=== PATIENT | female | born 1960 ===

== ENCOUNTER 2017-03-13 19:12 | Emergency (ER) | payer MEDICAID ==
[2017-03-13 19:27] VITALS: BP 138/86; PULSE 61; RESP 16; TEMP 98.2; O2SAT 99
--- NOTE | 2017-03-13 19:58 | ED PDOC ---
HPI: Headache Time Seen by Provider: 03/13/17 19:42 Chief Complaint (Nursing): Headache Chief Complaint (Provider): headache History Per: Patient History/Exam Limitations: no limitations Onset/Duration Of Symptoms: Days (x 1) Current Symptoms Are (Timing): Gone Now Additional Complaint(s): Ashwini Rob is a 56 year old female, with a previous medical history of gastritis, who presents to the ED with complaints of a frontal headache associated with right arm pain from the elbow to the shoulder and bilateral leg numbness from the knees to her feet ongoing since this morning. Patient denies any neck stiffness, weakness, visual changes or incontinence. Patient states headache and arm pain resolved secondary to taking Tylenol but leg numbness continues. PMD: none provided NIHSS Stroke Scale - Date/Time Evaluation Performed Date Performed: 03/13/17 Time Performed: 20:00 When Was NIHSS Performed: Baseline - How Severe is the Stroke Level of Consciousness: 0=Alert LOC to Questions: 0=Both comments correct Best Gaze: 0=Normal Visual: 0=No visual loss Facial: 0=Normal Motor Arm - Left: 0=No drift Motor Arm - Right: 0=No drift Motor Leg - Left: 0=No drift Motor Leg - Right: 0=No drift Limb Ataxia: 0=Absent Sensory: 0=Normal Dysarthia: 0=Normal articulation Extinction & Inattention (Neglect): 0=Normal, no object Past Medical History Reviewed: Historical Data, Nursing Documentation, Vital Signs Vital Signs: Last Vital Signs Temp 98.2 F 03/13/17 19:24 Pulse 61 03/13/17 19:24 Resp 16 03/13/17 19:24 BP 138/86 03/13/17 19:24 Pulse Ox 99 03/13/17 19:24 - Medical History PMH: Gastritis - Surgical History Surgical History: Cholecystectomy - Family History Family History: States: No Known Family Hx - Home Medications Home Medications: Ambulatory Orders Medication Instructions Recorded Ciprofloxacin HCl [Cipro] 250 mg PO BID #14 tab 12/11/15 Naproxen [Naprosyn] 500 mg PO BID PRN #20 tablet 12/11/15 Naproxen [Naprosyn] 500 mg PO BID PRN #15 tablet 03/13/17 - Allergies Allergies/Adverse Reactions: Allergies Allergy/AdvReac Type Severity Reaction Status Date / Time No Known Allergies Allergy Verified 05/31/17 19:24 Review of Systems ROS Statement: Except As Marked, All Systems Reviewed And Found Negative Eyes: Negative for: Vision Change Genitourinary Female: Negative for: Incontinence Musculoskeletal: Positive for: Arm Pain (right arm from elbow to shoulder). Negative for: Neck Pain (or stiffness ) Neurological: Positive for: Numbness (bilateral legs from knees to feet), Headache. Negative for: Weakness Physical Exam - Reviewed Nursing Documentation Reviewed: Yes Vital Signs Reviewed: Yes - Physical Exam Appears: Positive for: Well, Non-toxic, No Acute Distress Head Exam: Positive for: ATRAUMATIC, NORMAL INSPECTION, NORMOCEPHALIC Skin: Positive for: Normal Color, Warm, Dry Eye Exam: Positive for: Normal appearance, EOMI, PERRL. Negative for: Nystagmus Neck: Positive for: Normal, Painless ROM, Supple Cardiovascular/Chest: Positive for: Regular Rate, Rhythm Respiratory: Positive for: CNT, Normal Breath Sounds Pulses-Dorsalis Pedis (L): 2+ Pulses-Dorsalis Pedis (R): 2+ Extremity: Positive for: Normal ROM, Capillary Refill (< 2 seconds ), Other ( strength 5/5 in all extremities and sensations intact). Negative for: Tenderness, Pedal Edema, Calf Tenderness, Deformity, Swelling Neurologic/Psych: Positive for: Alert, Oriented. Negative for: Motor/Sensory Deficits - Laboratory Results Result Diagrams: 03/13/17 20:09 03/13/17 20:09 - ECG O2 Sat by Pulse Oximetry: 99 (RA) Pulse Ox Interpretation: Normal - CT Scan/US CT head Other Rad Studies (CT/US): Radiology Report Reviewed (No acute intracranial abnormality.) - Physician Consult Information Time Consulting Physican Contacted: 22:27 Physician Contacted: Christopher Canales Outcome Of Conversation: Recommends Rx for outpatient MRI brain with and without contrast and follow-up in office. Medical Decision Making Medical Decision Making: Initial Impression: Headache Initial Plan: * CT head w/o contrasti * labs * partial thromboplastin time * prothrombin time * urine * urine dipstick * urinalysis * reevaluation Scribe Attestation: Documented by Becky Chacon, acting as a scribe for Becky Eubanks MD. Provider Scribe Attestation: All medical record entries made by the Scribe were at my direction and personally dictated by me. I have reviewed the chart and agree that the record accurately reflects my personal performance of the history, physical exam, medical decision making, and the department course for this patient. I have also personally directed, reviewed, and agree with the discharge instructions and disposition. Disposition - Clinical Impression Clinical Impression: Acute headache, Paresthesia of bilateral legs - Patient ED Disposition Is Patient to be Admitted: No - Disposition Referrals: Christopher Canales MD [Staff Provider] - Disposition: Routine/Home Disposition Time: 22:28 Condition: STABLE Additional Instructions: GET OUTPATIENT MRI BRAIN WITH PRESCRIPTION GIVEN. Prescriptions: Naproxen [Naprosyn] 500 mg PO BID PRN #15 tablet PRN Reason: Pain, Moderate (4-7) Instructions: Acute Headache (ED), Paresthesia (ED) Print Language: WELSH
[2017-03-13 20:35] LABS: PARTIAL THROMBOPLASTIN TIME 27.5 SECONDS (23.3-32.5)
[2017-03-13 20:47] LABS: URINE BILIRUBIN NEGATIVE (NEGATIVE); URINE BLOOD SMALL (NEGATIVE); URINE COLOR STRAW (YELLOW); URINE GLUCOSE (UA) NEG (Normal); URINE KETONE NEGATIVE (NEGATIVE); URINE LEUKOCYTE ESTERASE NEG Leu/uL (Negative); URINE PROTEIN NEGATIVE (NEGATIVE); URINE UROBILINOGEN 0.2-1.0 mg/dL (0.2-1.0); WBC URINE 1 /hpf (0-5)
[2017-03-13 20:49] LABS: BASO % 0.4 % (0.0-2.0); EOS # 0.2 K/uL (0.0-0.7); EOS % 2.3 % (0.0-4.0); HEMATOCRIT 41.7 % (34.0-47.0); LYMPH # 2.8 K/uL (1.0-4.3); LYMPH % 32.7 % (20.0-40.0); MEAN CELL VOLUME 88.2 fl (81.0-99.0); MEAN CORPUSCULAR HGB CONC 32.8 g/dL (33.0-37.0); MEAN PLATELET VOLUME 8.2 fl (7.2-11.7); MONO # 0.6 K/uL (0.0-0.8); MONO % 6.9 % (0.0-10.0); NEUT % 57.7 % (50.0-75.0); RED CELL DISTRIBUTION WIDTH 14.8 % (11.5-14.5); WHITE BLOOD COUNT 8.7 K/uL (4.8-10.8)
[2017-03-13 21:05] LABS: ALB/GLOB RATIO 1.3 (1.0-2.1); ALKALINE PHOSPHATASE 79 U/L (38-126); ALT/SGPT 41 U/L (9-52); AST/SGOT 32 U/L (14-36); BILIRUBIN,TOTAL 0.5 mg/dl (0.2-1.3); BLOOD UREA NITROGEN 17 mg/dl (7-17); CALCIUM 9.6 mg/dL (8.4-10.2); CARBON DIOXIDE 28 mmol/L (22-30); CHLORIDE 103 mmol/L (98-107); GFR AFRICAN-AMERICAN > 60; GLUCOSE,RANDOM 103 mg/dL (65-105); SODIUM 143 mmol/l (132-148); TOTAL PROTEIN 8.2 G/DL (6.3-8.2)
--- NOTE | 2017-03-13 21:46 | CT ---
EXAM: CT Head Without Intravenous Contrast CLINICAL HISTORY: 56 years old, female; Pain; Headache; Other: Frontal; Additional info: ATKINSON TECHNIQUE: Axial computed tomography images of the head/brain without intravenous contrast. This CT exam was performed using one or more of the following dose reduction techniques: automated exposure control, adjustment of the mA and/or kV according to patient size, and/or use of iterative reconstruction technique. Coronal and sagittal reformatted images were created and reviewed. EXAM DATE/TIME: 03/13/2017 7:49 PM COMPARISON: There are no prior studies for comparison. FINDINGS: Brain: Ventricles are normal in size and configuration. There is no midline shift. There are no intra-axial or extra-axial mass lesions or areas of hemorrhage. There are no abnormal fluid collections. Meade-white differentiation is maintained. Ventricles: See above. Bones: Cranial vault is intact. Soft tissues: unremarkable Sinuses: There is no acute sinusitis. Ears and mastoids: Middle ears and mastoids are unremarkable Orbits: Orbital contents are unremarkable. IMPRESSION: No acute intracranial abnormality
== END 2017-03-13 22:58 | disposition home or self-care (01) ==
LOC: H.ER 19:12
DX: R51 Headache (principal); R20.9 Unspecified disturbances of skin sensation

== ENCOUNTER 2017-04-25 09:00 | Day surgery (SDC) | payer MEDICAID ==
[2017-04-25] MEDS ORDERED: Lactated Ringer's 500 ML IV ONE (09:28)
[2017-04-25] MEDS ORDERED: Propofol 10 mg/ml Inj (20 ML) ONE (09:50)
[2017-04-25 10:17] VITALS: TEMP 97.5
[2017-04-25 10:30] VITALS: BP 102/59; PULSE 55; RESP 15; O2SAT 100
== END 2017-04-25 10:31 | disposition home or self-care (01) ==
LOC: H.ENDO 09:00
PROVIDERS: ATTEND Internal Medicine Gastroenterology
DX: Z12.11 Encounter for screening for malignant neoplasm of colon (principal); K64.8 Other hemorrhoids

== ENCOUNTER 2018-02-27 13:59 | Emergency (ER) | payer MEDICAID ==
[2018-02-27 14:24] VITALS: BP 151/87; PULSE 64; RESP 18; TEMP 98; O2SAT 99
--- NOTE | 2018-02-27 15:45 | ED PDOC ---
HPI: General Adult Time Seen by Provider: 02/27/18 15:15 Chief Complaint (Nursing): Abnormal Skin Integrity Chief Complaint (Provider): Abnormal Skin Integrity History Per: Patient History/Exam Limitations: no limitations Onset/Duration Of Symptoms: Days (2) Current Symptoms Are (Timing): Still Present Additional Complaint(s): 57 year old female presents to the emergency department with a complaint of vaginal pain and swelling x2 days. Reports feeling a "ball" in her vaginal that has been worsening since onset. States that for about 2 months she has had a pain to the right hip radiating to the grown but is unsure if this is related. Patient also reports diarrhea last week that had resolved since. Denies vaginal bleeding, vaginal discharge, fever, chills, urinary symptoms, nausea, vomiting, and constipation. Last ASSISTANT ADMINISTRATOR appointment was 1 year ago: normal exam. PMD: Dr. Ashley CHURCH Past Medical History Reviewed: Historical Data, Nursing Documentation, Vital Signs Vital Signs: Last Vital Signs Temp 98.0 F 02/27/18 14:21 Pulse 64 02/27/18 14:21 Resp 18 02/27/18 14:21 BP 151/87 H 02/27/18 14:21 Pulse Ox 99 02/27/18 16:43 - Medical History PMH: Gastritis - Surgical History Surgical History: Cholecystectomy Other surgeries: Intestinal correction surgery as an - Family History Family History: States: No Known Family Hx - Social History Current smoker - smoking cessation education provided: No Alcohol: None Drugs: Denies - Home Medications Home Medications: Ambulatory Orders Medication Instructions Recorded Cephalexin [cephalexin] 500 mg PO QID #20 cap 02/27/18 Ibuprofen [Motrin Tab] 600 mg PO Q8 PRN #30 tab 02/27/18 - Allergies Allergies/Adverse Reactions: Allergies Allergy/AdvReac Type Severity Reaction Status Date / Time No Known Allergies Allergy Verified 04/25/17 09:24 Review of Systems ROS Statement: Except As Marked, All Systems Reviewed And Found Negative (As per HPI, otherwise negative) Constitutional: Negative for: Fever, Chills Gastrointestinal: Negative for: Nausea, Vomiting, Constipation Genitourinary Female: Positive for: Other (Vaginal pain and swelling). Negative for: Dysuria, Frequency, Incontinence, Hematuria, Vaginal Discharge, Vaginal Bleeding Musculoskeletal: Positive for: Other (Right hip radiating to the groin ) Physical Exam - Reviewed Nursing Documentation Reviewed: Yes Vital Signs Reviewed: Yes - Physical Exam Appears: Positive for: Well, Non-toxic, No Acute Distress Head Exam: Positive for: ATRAUMATIC, NORMAL INSPECTION, NORMOCEPHALIC Skin: Positive for: Warm, Dry Gastrointestinal/Abdominal: Positive for: Normal Exam, Soft. Negative for: Tenderness, Mass, Distended, Guarding, Rebound Pelvic Exam: Positive for: External Exam Normal (Automatic Beam Warper Tender: Eli RN. Normal external genitalia. ), Other (Palpable cyst at the right posterior vaginal opening consistent with bartholin cyst. Mild tenderness to palpation and fluctuant. ). Negative for: Active Bleeding, Discharge (No abnormal discharge) Lymphatic: Positive for: Normal Exam. Negative for: Other (No inguinal adenopathy) Neurologic/Psych: Positive for: Alert, Oriented (x3) - ECG O2 Sat by Pulse Oximetry: 99 (RA) Pulse Ox Interpretation: Normal Medical Decision Making Medical Decision Making: Time: 152 Initial impression: Bartholin Cyst Initial plan: Urine DIP Reevaluation Time: 154 --Discussed case with Dr. Kenny Wheat MD who will come and evaluate the patient in the ER. Time: 155 --RUBBER VULCANIZING MACHINE OPERATOR consult States: Consulting provider: Dr. Kenny Wheat MD [id number] Wheat who performed I&D of Bartholin's cyst. Pt to be given antibiotics and follow up next week [facility]. Scribe Attestation: Documented by Tonya Daliy, acting as a scribe for Ginny Angela MD Provider Scribe Attestation: All medical record entries made by the Scribe were at my direction and personally dictated by me. I have reviewed the chart and agree that the record accurately reflects my personal performance of the history, physical exam, medical decision making, and the department course for this patient. I have also personally directed, reviewed, and agree with the discharge instructions and disposition. Disposition - Clinical Impression Clinical Impression: Bartholin cyst Counseled Patient/Family Regarding: Studies Performed, Diagnosis, Need For Followup, Rx Given - Disposition Referrals: [facility] [Outside] ([facility]) Disposition: Routine/Home Disposition Time: 16:30 Condition: IMPROVED Prescriptions: Cephalexin [cephalexin] 500 mg PO QID #20 cap Ibuprofen [Motrin Tab] 600 mg PO Q8 PRN #30 tab PRN Reason: Pain, Moderate (4-7) Instructions: Bartholin's Gland Cyst Forms: [facility] ED School/Work Excuse Print Language: BULGARIAN
[2018-02-27] MEDS ORDERED: Lidocaine 1% Inj (20ml) ONE (16:00)
[2018-02-27] MEDS ORDERED: Silver Nitrate Topical - Stick ONE ×2 (16:23→16:24)
--- NOTE | 2018-02-27 16:46 | CP.PCM.CON ---
History of Present Illness - History of Present Illness History of Present Illness: Patient reports a history of swelling in the vagina that has been increasing in pain. Patient denies any fevers or chills. Patient denies any dysuria. Patient denies any abnormal bleeding or abnormal discharge. Patient denies any abdominal pain. On exam, patient has a right Bartholin gland abscess. Approximately 2-3 cm in size. I discussed with patient options including expectant management, antibiotics, and incision drainage. After discussion of options, patient opting for I/D. Discussed the risks, benefits, alternatives of procedure and patient consented to procedure. Past Patient History - Past Medical History & Family History Past Medical History?: No - Past Social History Alcohol: None Drugs: Denies - GASTROINTESTINAL Hx Gastritis: Yes - PSYCHIATRIC Hx Substance Use: No - SURGICAL HISTORY Hx Cholecystectomy: Yes - ANESTHESIA Hx Malignant Hyperthermia: No Meds Allergies/Adverse Reactions: Allergies Allergy/AdvReac Type Severity Reaction Status Date / Time No Known Allergies Allergy Verified 04/25/17 09:24 Physical Exam - Constitutional Appears: Well, No Acute Distress - Head Exam Head Exam: ATRAUMATIC - Eye Exam Eye Exam: EOMI, Normal appearance - Respiratory Exam Respiratory Exam: NORMAL BREATHING PATTERN - GI/Abdominal Exam GI & Abdominal Exam: Soft. absent: Distended, Tenderness - Exam Additional comments: Approximately 3 cm Bartholin gland cyst on right. This area sterile prep with Betadine solution. Area infiltrated superficially with 1% lidocaine solution. An approximately 0.5 cm incision placed with scalpel. Purulent fluid drained from the cyst. After drainage, slight found to be hemostatic. Patient tolerated procedure well. Results - Vital Signs Recent Vital Signs: Last Vital Signs Temp 98.0 F 02/27/18 14:21 Pulse 64 02/27/18 14:21 Resp 18 02/27/18 14:21 BP 151/87 H 02/27/18 14:21 Pulse Ox 99 02/27/18 16:43 Assessment & Plan - Assessment and Plan (Free Text) Assessment: Right Bartholin's gland abscess Plan: Procedure performed, as above. Keflex 500 mg 3 times daily for 5 days Follow-up in clinic within the week to examine discussed plan with patient and all patient questions answered. Weed Inspector present throughout history and physical and procedure. - Date & Time Date: 02/27/18 Time: 16:50
== END 2018-02-27 17:00 | disposition home or self-care (01) ==
LOC: H.ER 13:59
DX: N75.1 Abscess of Bartholin's gland (principal)

== ENCOUNTER 2018-08-03 20:20 | Emergency (ER) | payer MEDICAID ==
[2018-08-03 20:45] VITALS: BP 158/85; PULSE 72; RESP 18; TEMP 98.8; O2SAT 99
--- NOTE | 2018-08-03 21:45 | ED PDOC ---
HPI: Female Pain Time Seen by Provider: 08/03/18 21:01 Chief Complaint (Nursing): Female Genitourinary Chief Complaint (Provider): Female Genitourinary History Per: Patient History/Exam Limitations: no limitations Onset/Duration Of Symptoms: Days (x1) Current Symptoms Are (Timing): Still Present Additional Complaint(s): 57 year old female with a history of Bartholins abscess presents to the ED with right sided vaginal swelling onset 1 day. Patient reports pain radiated to buttocks. She had previous similar pain, at which point she was diagnosed with Bartholins abscess. Patient denies vaginal discharge, vaginal bleeding, fever but she does have chills. PMD: none provided Past Medical History Reviewed: Historical Data, Nursing Documentation, Vital Signs Vital Signs: Last Vital Signs Temp 98.8 F 08/03/18 20:42 Pulse 72 08/03/18 20:42 Resp 18 08/03/18 20:42 BP 158/85 H 08/03/18 20:42 Pulse Ox 99 08/03/18 20:42 - Medical History PMH: Gastritis - Surgical History Surgical History: Cholecystectomy - Family History Family History: States: Unknown Family Hx - Social History Current smoker - smoking cessation education provided: No Ex-Smoker (has not smoked in the last 12 months): No Alcohol: None Drugs: Denies - Home Medications Home Medications: Ambulatory Orders Medication Instructions Recorded Cephalexin [cephalexin] 500 mg PO QID #20 cap 02/27/18 Ibuprofen [Motrin Tab] 600 mg PO Q8 PRN #30 tab 02/27/18 Cephalexin [Keflex] 500 mg PO Q6 #28 capsule 08/03/18 Ibuprofen [Motrin Tab] 600 mg PO Q6 PRN #16 tab 08/03/18 - Allergies Allergies/Adverse Reactions: Allergies Allergy/AdvReac Type Severity Reaction Status Date / Time No Known Allergies Allergy Verified 04/25/17 09:24 Review of Systems ROS Statement: Except As Marked, All Systems Reviewed And Found Negative Genitourinary Female: Positive for: Other (right sided vaginal swelling) Physical Exam - Reviewed Nursing Documentation Reviewed: Yes Vital Signs Reviewed: Yes - Physical Exam Appears: Positive for: Non-toxic, No Acute Distress Head Exam: Positive for: ATRAUMATIC Skin: Positive for: Normal Color, Warm, Dry Eye Exam: Positive for: Normal appearance, EOMI, PERRL Cardiovascular/Chest: Positive for: Regular Rate, Rhythm. Negative for: Murmur Respiratory: Positive for: Normal Breath Sounds. Negative for: Respiratory Distress Gastrointestinal/Abdominal: Positive for: Normal Exam, Soft. Negative for: Tenderness Pelvic Exam: Positive for: External Exam Normal, Other (Diazo Technician: Edgar PYLE. No speculum, 3 cm right sided Bartholins cyst tenderness, erythema, no active drainage ) Back: Positive for: Normal Inspection Extremity: Positive for: Normal ROM (upper and lower). 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 Morrison --Ibuprofen Time: 2144 --Dr. Morrison came and evaluated patient and feels that patient does not need I&D or word catheter placement. Recommended patient receive a course of Keflex. Patient to follow up with Chief Librarian Extension Department clinic or return if she experiences any worsening symptom. Scribe Attestation: Documented by Mami Loyd, acting as a scribe for Dilip Villela MD Provider Scribe Attestation: All medical record entries made by the Scribe were at my direction and personally dictated by me. I have reviewed the chart and agree that the record accurately reflects my personal performance of the history, physical exam, medical decision making, and the department course for this patient. I have also personally directed, reviewed, and agree with the discharge instructions and disposition. Disposition - Clinical Impression Clinical Impression: Bartholin's gland abscess - Disposition Disposition Time: 21:45 Condition: STABLE Prescriptions: Cephalexin [Keflex] 500 mg PO Q6 #28 capsule Ibuprofen [Motrin Tab] 600 mg PO Q6 PRN #16 tab PRN Reason: pelvic pain Instructions: Bartholin's Gland Cyst, How to Do a Sitz Bath Forms: [facility] (Kyrgyz) Print Language: TELUGU
== END 2018-08-03 22:40 | disposition home or self-care (01) ==
LOC: H.ER 20:20
DX: N75.1 Abscess of Bartholin's gland (principal)

== ENCOUNTER 2018-08-04 18:14 | Emergency (ER) | payer MEDICAID ==
[2018-08-04 18:40] VITALS: BP 160/82; PULSE 72; RESP 16; TEMP 98.9; O2SAT 99
--- NOTE | 2018-08-04 21:22 | ED PDOC ---
HPI: Female Pain Time Seen by Provider: 08/04/18 21:00 Chief Complaint (Nursing): Female Genitourinary Chief Complaint (Provider): vaginal swelling History Per: Patient (57 y/o female here with right side vaginal swelling x few days. Seen by Dr. Morrison yesterday and d/c home. Patient notes increased pain/swelling.) Past Medical History Reviewed: Historical Data, Nursing Documentation, Vital Signs Vital Signs: Last Vital Signs Temp 98.9 F 08/04/18 18:40 Pulse 72 08/04/18 18:40 Resp 16 08/04/18 18:40 BP 160/82 H 08/04/18 18:40 Pulse Ox 99 08/04/18 18:40 - Medical History PMH: Gastritis - Surgical History Surgical History: Cholecystectomy - Family History Family History: States: Unknown Family Hx - Home Medications Home Medications: Ambulatory Orders Medication Instructions Recorded Cephalexin [cephalexin] 500 mg PO QID #20 cap 02/27/18 Ibuprofen [Motrin Tab] 600 mg PO Q8 PRN #30 tab 02/27/18 Cephalexin [Keflex] 500 mg PO Q6 #28 capsule 08/03/18 Ibuprofen [Motrin Tab] 600 mg PO Q6 PRN #16 tab 08/03/18 Ibuprofen [Motrin] 600 mg PO Q8 PRN #21 tab 08/04/18 - Allergies Allergies/Adverse Reactions: Allergies Allergy/AdvReac Type Severity Reaction Status Date / Time No Known Allergies Allergy Verified 04/25/17 09:24 Review of Systems ROS Statement: Except As Marked, All Systems Reviewed And Found Negative Physical Exam - Reviewed Nursing Documentation Reviewed: Yes Vital Signs Reviewed: Yes - Physical Exam Appears: Positive for: Well, Non-toxic, No Acute Distress Head Exam: Positive for: ATRAUMATIC, NORMAL INSPECTION, NORMOCEPHALIC Skin: Positive for: Normal Color, Warm, DRY Eye Exam: Positive for: EOMI, Normal appearance, PERRL ENT: Positive for: Normal ENT Inspection Neck: Positive for: Normal, Painless ROM Cardiovascular/Chest: Positive for: Regular Rate, Rhythm Respiratory: Positive for: CNT, Normal Breath Sounds Gastrointestinal/Abdominal: Positive for: Normal Exam, Soft Pelvic Exam: Positive for: Other (swelling right labial region.) Back: Positive for: Normal Inspection Extremity: Positive for: Normal ROM Neurologic/Psych: Positive for: Alert, Oriented - ECG O2 Sat by Pulse Oximetry: 99 - Progress ED Course And Treament: SEEN BY DR. ASHFORD IN ED AND ADVISED F/U OUTPATIENT. Disposition - Clinical Impression Clinical Impression: Bartholin cyst - Patient ED Disposition Is Patient to be Admitted: No - Disposition Referrals: [facility] [Outside] Disposition: Routine/Home Disposition Time: 21:23 Condition: FAIR Prescriptions: Ibuprofen [Motrin] 600 mg PO Q8 PRN #21 tab PRN Reason: Pain, Moderate (4-7) Instructions: Bartholin's Gland Cyst Forms: [employer] (Slovenian) Print Language: BENINESE
--- NOTE | 2018-08-04 21:46 | CP.PCM.CON ---
History of Present Illness - History of Present Illness History of Present Illness: 57 yo female presenting for the second time in two days to the ER with perineal mass and pain. Patient was discharged home yesterday with diagnosis of Bartholian cyst, was given PO pain medication and antibiotics. Patient reports pain is the same, unchanged since yesterday. When she stands, patient concerned that the bartholian abscess gets bigger. Otherwise patient denies fever, no N/V, tolerating PO, ambulating well, no vaginal bleeding. Patient reports she was not taking the pain medication or doing sitz baths Review of Systems - Constitutional Constitutional: As Per HPI - Cardiovascular Cardiovascular: As Per HPI - Respiratory Respiratory: As Per HPI - Gastrointestinal Gastrointestinal: As Per HPI - Genitourinary Genitourinary: As Per HPI - Reproductive: Female Reproductive:Female: As Per HPI Past Patient History - Past Medical History & Family History Past Medical History?: No - Past Social History Smoking Status: Never Smoked - GASTROINTESTINAL Hx Gastritis: Yes - PSYCHIATRIC Hx Substance Use: No - SURGICAL HISTORY Hx Cholecystectomy: Yes - ANESTHESIA Hx Malignant Hyperthermia: No Meds Home Medications: Home Medication List Medication Instructions Recorded Confirmed Type Ibuprofen [Motrin] 600 mg PO Q8 PRN #21 tab 08/04/18 Rx Allergies/Adverse Reactions: Allergies Allergy/AdvReac Type Severity Reaction Status Date / Time No Known Allergies Allergy Verified 04/25/17 09:24 Physical Exam - Constitutional Appears: Well - Head Exam Head Exam: ATRAUMATIC - Respiratory Exam Respiratory Exam: NORMAL BREATHING PATTERN - Cardiovascular Exam Cardiovascular Exam: REGULAR RHYTHM - GI/Abdominal Exam GI & Abdominal Exam: Normal Bowel Sounds, Soft - Exam Additional comments: right sided Bartholian abscess noted, painful to touch, no induration no spontaneous drainage - Extremities Exam Extremities exam: Positive for: normal inspection - Neurological Exam Neurological exam: Oriented x3 Results - Vital Signs Recent Vital Signs: Last Vital Signs Temp 98.9 F 08/04/18 18:40 Pulse 72 08/04/18 18:40 Resp 16 08/04/18 18:40 BP 160/82 H 08/04/18 18:40 Pulse Ox 99 08/04/18 21:25 Assessment & Plan - Assessment and Plan (Free Text) Assessment: A/P 1. Patient presents with unchanged Bartholian cyst, about 2cm. Uncomfortable to touch, not indurated and unable to be drained at this point. Discussed with patient at this point appropriate supportive care with sitz baths multiple times a day and warm compress. Patient unaware, discussed that cyst is not appropriate for drainage at this time 2. Patient otherwise stable for discharge. Encouraged patient to make appointment with a primary cordwood cutter helper for annual exam - Date & Time Date: 08/04/18 Time: 21:46
== END 2018-08-04 21:35 | disposition home or self-care (01) ==
LOC: H.ER 18:14
DX: N75.0 Cyst of Bartholin's gland (principal)

== ENCOUNTER 2018-08-30 06:38 | Emergency (ER) | payer MEDICAID ==
[2018-08-30] MEDS ORDERED: Sodium Chloride 0.9% 1,000 ML IV STA (07:45)
--- NOTE | 2018-08-30 08:16 | ED PDOC ---
HPI:Nausea, Vomiting, Diarrhea Time Seen by Provider: 08/30/18 07:17 Chief Complaint (Nursing): GI Problem Chief Complaint (Provider): Diarrhea History Per: Patient History/Exam Limitations: no limitations Onset/Duration Of Symptoms: Days (x2) Current Symptoms Are (Timing): Still Present Have you had recent travel within the past 21 days to any of the following countries: [place], [place], [place] or [place]?: Yes Other Location:: [facility] Associated Symptoms: Nausea, Diarrhea. denies: Fever, Chills, Vomiting Additional Complaint(s): 57 year old female presents to the ED complaining of diarrhea, body aches for 5 days. Patient states she returned from [facility] yesterday and had watery diarrhea and nausea for 3 days there. Denies abdominal pain, vomiting, fever, chills, sick contacts, or medications taken [employer]. Patient reports feeling malaise and fatigue and had a cough in [place] which has since improved. PMD: none Past Medical History Reviewed: Historical Data, Nursing Documentation, Vital Signs Vital Signs: Last Vital Signs Temp 98.2 F 08/30/18 07:48 Pulse 94 H 08/30/18 07:02 Resp 16 08/30/18 07:02 BP 123/81 08/30/18 07:02 Pulse Ox 98 08/30/18 07:02 - Medical History PMH: Gastritis - Surgical History Surgical History: Cholecystectomy - Family History Family History: States: Unknown Family Hx - Home Medications Home Medications: Ambulatory Orders Medication Instructions Recorded Cephalexin [cephalexin] 500 mg PO QID #20 cap 02/27/18 Ibuprofen [Motrin Tab] 600 mg PO Q8 PRN #30 tab 02/27/18 Cephalexin [Keflex] 500 mg PO Q6 #28 capsule 08/03/18 Ibuprofen [Motrin] 600 mg PO Q8 PRN #21 tab 08/04/18 Ibuprofen [Motrin Tab] 600 mg PO Q6 PRN #16 tab 08/30/18 Ondansetron ODT [Zofran ODT] 4 mg PO Q8 PRN #12 odt 08/30/18 - Allergies Allergies/Adverse Reactions: Allergies Allergy/AdvReac Type Severity Reaction Status Date / Time No Known Allergies Allergy Verified 04/25/17 09:24 Review of Systems ROS Statement: Except As Marked, All Systems Reviewed And Found Negative Constitutional: Positive for: Malaise, Other (Body aches and fatigue). Negative for: Fever Respiratory: Negative for: Cough Gastrointestinal: Positive for: Nausea, Diarrhea. Negative for: Vomiting, Abdominal Pain Physical Exam - Reviewed Nursing Documentation Reviewed: Yes Vital Signs Reviewed: Yes - Physical Exam Appears: Positive for: Non-toxic, No Acute Distress, Uncomfortable Head Exam: Positive for: ATRAUMATIC, NORMOCEPHALIC Skin: Positive for: Normal Color, Warm, Dry Eye Exam: Positive for: Normal appearance ENT: Positive for: Normal ENT Inspection Neck: Positive for: Normal, Painless ROM Cardiovascular/Chest: Positive for: Regular Rate, Rhythm. Negative for: Murmur Respiratory: Positive for: Normal Breath Sounds. Negative for: Wheezing, Respiratory Distress Pulses-Radial (L): 2+ Pulses-Radial (R): 2+ Gastrointestinal/Abdominal: Positive for: Normal Exam, Soft. Negative for: Tenderness Extremity: Positive for: Normal ROM Neurologic/Psych: Positive for: Alert, Oriented. Negative for: Motor/Sensory Deficits - Laboratory Results Result Diagrams: 08/30/18 08:30 08/30/18 08:30 - ECG O2 Sat by Pulse Oximetry: 98 (RA) Pulse Ox Interpretation: Normal - Progress Re-evaluation Time: 10:50 Condition: Re-examined, Improved Medical Decision Making Medical Decision Making: Initial Impression: Flu like symptoms, diarrhea Differentials include viral diarrhea, bacterial diarrhea, influenza, dehydration Initial Plan: --CMP --CPK --Lipase --ED urine dipstick --CBC --Imodium 4mg PO --Sodium chloride 1000mL IV --Toradol 30mg IV --Zofran 4mg IV --Stool culture --Influenza A B stat - Scribe Attestation: Documented by Feliciano Loyd acting as a scribe for Constanza Wright MD. Provider Scribe Attestation: All medical record entries made by the Scribe were at my direction and personally dictated by me. I have reviewed the chart and agree that the record accurately reflects my personal performance of the history, physical exam, medical decision making, and the department course for this patient. I have also personally directed, reviewed, and agree with the discharge instructions and disposition. Disposition - Clinical Impression Clinical Impression: Flu-like symptoms, Diarrhea, Hypokalemia - Patient ED Disposition Is Patient to be Admitted: No Doctor Will See Patient In The: Office Counseled Patient/Family Regarding: Studies Performed, Diagnosis, Need For Followup - Disposition Referrals: [facility] [Outside] Disposition: Routine/Home Disposition Time: 10:52 Condition: GOOD Additional Instructions: GENNARO DIXON, thank you for letting us take care of you today. Your provider was Constanza Wright MD and you were treated for BODDAY PAIN, DIARRHEA. The emergency medical care you received today was directed at your acute symptoms. If you were prescribed any medication, please fill it and take as directed. It may take several days for your symptoms to resolve. Return to the Emergency Department if your symptoms worsen, do not improve, or if you have any other problems. Please contact your doctor or call one of the physicians/clinics you have been referred to that are listed on the Patient Visit Information form that is included in your discharge packet. Bring any paperwork you were given at discharge with you along with any medications you are taking to your follow up visit. Our treatment cannot replace ongoing medical care by a primary care provider outside of the emergency department. Thank you for allowing the [facility] team to be part of your care today. If you had an X-Ray or CT scan: A Radiologist will review the ED reading if any change in treatment is needed we will contact you. If you had a blood, urine, or wound culture: It will take several days for the results, if any change in treatment is needed we will contact you. If you had an STI test: It will take 48 hours for the results. Please call after 1 week if you have not heard back. Prescriptions: Ibuprofen [Motrin Tab] 600 mg PO Q6 PRN #16 tab PRN Reason: pelvic pain Ondansetron ODT [Zofran ODT] 4 mg PO Q8 PRN #12 odt PRN Reason: Nausea/Vomiting Instructions: Diarrhea in Adolescents and Adults, Hypokalemia (DC), Viral Syndrome (DC) Print Language: [id number]
[2018-08-30 08:42] LABS: BASO % 0.6 % (0.0-2.0); EOS % 0.4 % (0.0-4.0); HEMOGLOBIN 16.3 g/dL (12.0-16.0); LYMPH % 12.7 % (20.0-40.0); MEAN CELL VOLUME 87.5 fl (81.0-99.0); MEAN CORPUSCULAR HEMOGLOBIN 29.9 pg (27.0-31.0); MEAN CORPUSCULAR HGB CONC 34.2 g/dL (33.0-37.0); MEAN PLATELET VOLUME 7.8 fl (7.2-11.7); MONO # 0.7 K/uL (0.0-0.8); MONO % 8.1 % (0.0-10.0); NEUT # 6.3 K/uL (1.8-7.0); NEUT % 78.2 % (50.0-75.0); NRBC % 0.1 % (0.0-0.0); RBC 5.47 Mil/uL (3.80-5.20); RED CELL DISTRIBUTION WIDTH 14.1 % (11.5-14.5); WHITE BLOOD COUNT 8.1 K/uL (4.8-10.8)
[2018-08-30 08:52] LABS: ALB/GLOB RATIO 1.2 (1.0-2.1); ALBUMIN 4.2 g/dL (3.5-5.0); ALT/SGPT 63 U/L (9-52); AST/SGOT 38 U/L (14-36); BLOOD UREA NITROGEN 16 mg/dl (7-17); CALCIUM 8.9 mg/dL (8.4-10.2); GFR NON-AFRICAN AMERICAN > 60; LIPASE 93 U/L (23-300)
[2018-08-30] MEDS ORDERED: Potassium CL 10 MEQ/50 ML 50 ML IVPB ONE (09:43)
[2018-08-30] MEDS ORDERED: Potassium Chloride 20 mEq ER Tab PO ONE (09:43)
[2018-08-30] MEDS ORDERED: Potassium CL 10 MEQ/50 ML 50 ML ONE (09:52)
[2018-08-30 11:07] VITALS: BP 111/64; PULSE 64; RESP 18; TEMP 97.9
[2018-08-30 11:21] VITALS: O2SAT 98
== END 2018-08-30 11:07 | disposition home or self-care (01) ==
LOC: H.ER 06:38
DX: J11.1 Influenza due to unidentified influenza virus with other respiratory manifestations (principal); R19.7 Diarrhea, unspecified; E87.6 Hypokalemia; Z79.899 Other long term (current) drug therapy
CPT/HCPCS: 80053; 82550; 83690; 85025; 87804; 96361; 96374; 96375; 99283; J1885; J2405; J3480; J7030